=== PATIENT | male | born 1960 | race Caucasian/White ===

== ENCOUNTER 2019-01-13 09:06 | Outpatient (RCR) | payer OTHER, SELFPAY ==
[2019-01-13 09:27] VITALS: BP 166/102; PULSE 74; RESP 18; TEMP 36.6; BMI 36.8
--- NOTE | 2019-01-13 15:45 | PCM.WC.HP ---
(1) Perianal fistula Status: Chronic Current Visit: Yes Code(s): K60.3 - Anal fistula (2) Perianal abscess Status: Chronic Current Visit: Yes Code(s): K61.0 - Anal abscess (3) History of necrotizing fasciitis Status: Chronic Current Visit: Yes Code(s): Z87.39 - Personal history of other diseases of the musculoskeletal system and connective tissue (4) History of colon polyps Status: Chronic Current Visit: Yes Code(s): Z86.010 - Personal history of colonic polyps (5) Obesity (BMI 30-39.9) Status: Chronic Current Visit: Yes Code(s): E66.9 - Obesity, unspecified History of Present Illness Date of Service: 01/13/19 Chief Complaint: Perianal fistula secondary to necrotizing fasciitis of the rectum and perineum. History of Wound: This is a generally healthy 59-year-old male who presents with sequelae related to necrotizing fasciitis which was diagnosed in October 2016. The necrotizing fasciitis involved his rectal area and perineum, requiring life-saving surgery. Surgery was performed at [facility] in [place], [place]. The the surgery was a lifesaving measure, and the patient had a lengthy recovery, spanning 4 months of perineal and perirectal wound care and packing changes. As result, the patient has developed a chronic perianal fistula. Despite surgical intervention on September 25, 2018, at [facility], in which an attempt at perianal fistula repair was undertaken, the fistula persists until the current day. More recently, approximately 6 weeks ago, a perianal abscess developed, and drained spontaneously. The patient has remained under the care of a colon and rectal surgeon at [facility], Dr.Richard Weber. In August 2018, the patient underwent a colonoscopy, and was found to have an anorectal polyp measuring 30 mm in the descending colon, and a 10 mm polyp in the rectum. These were removed colonoscopically, and the patient is scheduled to undergo a repeat colonoscopy in the near future. A CT scan performed in mid November 2018 revealed inflammatory changes in the left perirectal area, suspicious for a fistula. He has been referred to our facility for evaluation and consideration of hyperbaric oxygen therapy for his persisting, nonhealing perianal fistula. While surgical management to toots another option of management, the procedure performed in August 2018 failed to identify the presence of an internal os. The patient claims to have satisfactory control of bowel movements. He denies hematochezia or melena. Past Medical History Past Medical History: Chronic Problems Perianal fistula (Chronic) Perianal abscess (Chronic) History of necrotizing fasciitis (Chronic) History of colon polyps (Chronic) Obesity (BMI 30-39.9) (Chronic) Past Medical History: Patient's history is negative for myocardial infarction, congestive heart failure, hypertension, diabetes mellitus, cancer, cerebrovascular accident, pulmonary disease, renal disease, thyroid disease, hyperlipidemia, etc. Surgical History: - - Patient has a history of bilateral carpal tunnel release. Left ulnar nerve release has been performed in the past. Patient has undergone a right total knee replacement as well. Allergies/Adverse Reactions: Allergies No Known Allergies Allergy (Verified 01/13/19 09:35) - Family History Paternal - - Patient's father is 80 years of age with a history of myocardial infarction. The patient's mother is 79 years of age, with a history of breast cancer. 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 He lives in the [facility], but spends his weeks in [place] as per the demands of his occupation. He denies the use of tobacco products. He consumes alcohol beverages occasionally. He is . Lives: Spouse/ Significant Other Smoking Status: Never smoker Tobacco Use: Non-smoker Alcohol: Occasional Drugs: None Review of Systems Constitutional: Denies: Chills, Fever, Weight Change Eyes: Denies: Pain, Vision Change HEENT: Denies: Difficulty Hearing, Difficulty Swallowing, Sinus Congestion Cardiovascular: Denies: Chest Pain, Palpitations Respiratory: Denies: Cough, Shortness of Breath Gastrointestinal: Denies: Diarrhea, Nausea, Vomiting Genitourinary: Denies: Dysuria, Hematuria Endocrine: Denies: Heat/ Cold Intolerance, Polydipsia, Polyuria Hematologic/ Lymphatic: Denies: Easy Bruising, Easy Bleeding - Physical Exam Vital Signs Temp Pulse Resp BP 97.8 F 74 18 166/102 H 01/13/19 09:27 01/13/19 09:27 01/13/19 09:27 01/13/19 09:27 General: Alert, Oriented x3, Cooperative, No apparent distress, Well developed, Well nourished HEENT: Atraumatic, PERRLA, EOMI, Normocephalic, TM's Clear - Otoscopic examination was normal Oral: Moist Mucosa, No Gingival or Mucosal Lesions/ Ulcerations Neck: Supple, No JVD, Negative Carotid Bruits, Negative Hepatojugular Reflux, No Nodes, No Nuchal Rigidity, Trachea Midline, Thyroid Normal Size and Texture Lungs: Clear to auscultation, Normal air movement, No rhonchi, No wheeze, No rales Cardiovascular: Regular rate, Regular Rhythm, Normal S1, Normal S2, No murmurs Abdomen: Bowel Sounds Present, Soft, Non Tender, Non-Distended, Obese Extremities: No clubbing, No cyanosis, No edema, No Calf Tenderness, - - Peripheral extremities are warm and well-perfused Skin: No rashes, No breakdown Wound Measurements and Assessment WC - Nurse 1 - General Ulcer Measurement Start: 01/13/19 09:27 Freq: Status: Active Protocol: Activity Type Activity Date Activity User E-Sign Co-Sign Detail Recorded Client Recorded Date Recorded By Document 01/13/19 09:27 [id number] 01/13/19 09:35 01/13/19 09:27 Wound Center Nurse 1 [Edema Assessment] -Lower Limb Edema Present NA WC - Nurse 2 - General Ulcer CM Notes Start: 01/13/19 09:27 Freq: Status: Active Protocol: Activity Type Activity Date Activity User E-Sign Co-Sign Detail Recorded Client Recorded Date Recorded By Document 01/13/19 09:55 MW [id number] 01/13/19 10:12 MW 01/13/19 09:55 Pain Scale: 0-10 Numeric [Pain] -Is Patient Pain Free? Yes Musculoskeletal: No Tenderness to Palpation of Joints or Extremities, No Muscle Wasting Lymphatic: No Cervical, Supraclavicular, or Inguinal Adenopathy Neurological: Cranial nerves II-XII grossly intact, Neuro grossly intact Psych/Mental Status: Normal Affect, Appropriate, Alert and oriented to time, place, person, mood and affect Debridement Note Post-Debridement Measurements/Treatment - Nurse 2 - General Ulcer CM Notes Start: 01/13/19 09:27 Freq: Status: Active Protocol: Activity Type Activity Date Activity User E-Sign Co-Sign Detail Recorded Client Recorded Date Recorded By Document 01/13/19 09:55 MW [id number] 01/13/19 10:12 MW 09/17/19 09:55 Pain Scale: 0-10 Numeric Is Patient Pain Free? Yes Assessment/Plan Active Problems Perianal fistula (Chronic) Perianal abscess (Chronic) History of necrotizing fasciitis (Chronic) History of colon polyps (Chronic) Obesity (BMI 30-39.9) (Chronic) Assessment: This is a generally healthy 59-year-old male who presents with a perianal fistula, the residual from prior necrotizing fasciitis of the perirectal region and perineum. Since his episode of necrotizing fasciitis in October 2016, the patient has had an abscess which drained spontaneously only just 6 weeks ago. Surgical intervention was performed in August 2018, at which time an attempt at perianal fistula repair was made. An internal os could not be identified, so tentative surgical repair of the perianal fistula was not feasible. Patient has been referred by his colon and rectal surgeon, Dr. Tao Weber, at [facility], for consideration of hyperbaric oxygen therapy. We have reviewed the patient's history and physical findings. There appeared to be no contraindications to initiating hyperbaric oxygen therapy. The patient is generally healthy, but for obesity. He has no other significant medical illnesses. A thorough assessment of body systems has been undertaken. No significant issues have been identified. Evaluation of the cardiovascular system, endocrinological system, pulmonary system, HEENT, genitourinary system, etc., revealed no significant contraindications to hyperbaric oxygen therapy. The patient has no history of pneumothorax, barotrauma of any type, seizures, and denies any history of claustrophobia. It appears as though hyperbaric oxygen therapy may well be a good primary modality with respect to the patient's perianal fistula. Alternatively, it may also serve as an adjunct to possible surgical re-intervention in the repair of the patient's perianal fistula. Since his initial treatment for necrotizing fasciitis, he has had recurring issues in the perirectal area, including abscess formation with spontaneous drainage. Plan: The nature of hyperbaric oxygen therapy has been discussed thoroughly with the patient. Our routine educational materials have been presented to the patient, enlightening him as to the indications, risks, and expectations related to hyperbaric oxygen therapy. Patient has expressed his desire to proceed. An attempt will be made to preauthorize hyperbaric oxygen, which will be initiated once approved. In the antrum, patient is to undergo routine laboratory studies, and a chest x-ray will be performed to assure that no abnormalities are found to contraindicate the initiation of HBO therapy. Influenza vaccine was not administered today. The patient is not a smoker. He stands 6 feet 0 inches tall. He weighs 272 pounds. BMI is 36.9, which places the patient in a class II obesity category. Weight loss has been recommended. Vibration with the patient's primary care physician has been advised.
== END 2019-01-26 23:59 ==
LOC: WC 09:06
PROVIDERS: Visit Provider Surgery
DX: K61.0 Anal abscess (principal); E66.9 Obesity, unspecified; Z68.36 Body mass index [BMI] 36.0-36.9, adult; Z71.3 Dietary counseling and surveillance; Z86.010 Personal history of colon polyps
CPT/HCPCS: 99203; G0463

== ENCOUNTER → 2019-01-15 13:17 | Outpatient (CLI) | payer OTHER, SELFPAY ==
[2019-01-13 09:27] VITALS: BMI 36.8
--- NOTE | 2019-01-15 13:21 | RAD_ITS ---
HISTORY:HBO TREATMENTS, NO CHEST COMPLAINTS HBO TREATMENTS, NO CHEST COMPLAINTS EXAM: XR Chest 2 Views: COMPARISON: None FINDINGS: # of images incl. paperwork: 2 LINES/DEVICES: None. LUNGS: Radiographically clear. No consolidation, edema or effusion. No pneumothorax. MEDIASTINUM AND CARDIOVASCULAR STRUCTURES: Cardiac silhouette not enlarged. BONES AND SOFT TISSUES: Unremarkable. RAD/Chest PA and Lateral IMPRESSION: No radiographic evidence of acute cardiopulmonary disease. at 2139 Reported and signed by: Destiny Ramirez DO Electronically Signed: Destiny Ramirez DO at 21:38 EDT Tel , Service support ,
[2019-01-15 14:17] LABS: Hematocrit 48.2 % (40-54); Hemoglobin 16.1 g/dL (13.0-16.5); Mean Corp Hgb Conc 33.4 g/dL (32-36); Mean Corpuscular Hgb 31.7 pg (27.0-32.0); Mean Corpuscular Volume 94.9 fL (80-94); Mean Platelet Vol. 10.7 fl (6.2-12.0); Platelet Count 146 K/mm3 (150-450); RBC Distribution Width CV 12.2 % (11.6-14.6); RBC Distribution Width SD 42.8 fl (35.1-43.9); Red Blood Count 5.08 M/mm3 (4.6-6.2); White Blood Count 8.4 K/mm3 (4.4-11.0)
[2019-01-15 15:05] LABS: ALB/GLOB Ratio 1.1 RATIO (0.9-2.4); AST(SGOT) 53 U/L (15-37); Alanine Aminotransfer ALT/SGPT 53 U/L (16-61); Albumin, Serum 3.7 g/dL (3.2-5.0); Alkaline Phosphatase 102 U/L (45-117); Anion Gap 9 (5-15); BUN 13 mg/dL (7-18); BUN/Creat Ratio 13.7 RATIO (10-20); Calcium,Total 8.4 mg/dL (8.5-10.1); Chloride 109 mmol/L (98-107); Creatinine, Serum 0.95 mg/dL (0.70-1.30); EST Glomerular Filtration Rate 86 mL/min (>60); Est Glom Filt Rate - Afr Amer 104 mL/min (>60); Globulin 3.5 g/dL (2.2-4.2); Glucose 122 mg/dL (74-106); Potassium 3.8 mmol/L (3.5-5.1); Prealbumin 26.8 mg/dL (20.0-40.0); Protein, Total 7.2 g/dL (6.4-8.2); Sodium Level 143 mmol/L (136-145)
== END ==
PROVIDERS: Referring Provider Surgery; Visit Provider Surgery
DX: K60.3 Anal fistula (principal)
CPT/HCPCS: 36415; 71046; 80053; 84134; 85027

== ENCOUNTER 2021-10-04 06:58 | Emergency (ER) | payer BC, SELFPAY ==
[2021-10-04 06:59] VITALS: BP 190/101; PULSE 92; RESP 28; TEMP 35.9; O2SAT 97; BMI 34.6
--- NOTE | 2021-10-04 07:14 | EKG12_ITS ---
Test Reason : DIZZY Blood Pressure : / mmHG Vent. Rate : 081 BPM Atrial Rate : 081 BPM P-R Int : 178 ms QRS Dur : 114 ms QT Int : 420 ms P-R-T Axes : 051 003 019 degrees QTc Int : 487 ms Normal sinus rhythm Prolonged QT Abnormal ECG Confirmed by JOHN HENRIQUEZ, YESENIA ([id number]), department editor MUNIRA BETANCOURT ([id number]) on 10/09/2021 7:33:29 AM Referred By: GEMA Confirmed By:YESENIA LOPEZ MD
--- NOTE | 2021-10-04 07:14 | EX.ED.DYSGE1 ---
HPI History of Present Illness Chief Complaint: Hypertension Informant: patient Narrative Narrative: Patient is a 61-year-old male presenting with hypertension and night sweats. Patient states that [place] here for work. [facility] on 08/25 with 1 refill. States he ran out. He does have an appointment to see a new primary care doctor in the area this coming Saturday, 5 days from now. He had been feeling great and had sweats all night long last night. He came in just to get checked out and to get a med refill until he can see his new primary care doctor. Denies any chest pain, shortness of breath or difficulty breathing. Patient does have a history of necrotizing fasciitis of the perineum with perianal abscess/fistula and a suture still in place. He notes that the area bleeds from time to time. He denies any pain in the area. He denies any difficulty with bowel movements or urination. Denies any fever or chills. Notes his initial surgery was in [place]. No other complaints at this time. [facility] Home Medications lisinopril 10 mg PO DAILY 10/04/21 [History Last Taken Unknown] lisinopril 10 mg PO DAILY #30 tab 10/04/21 [Rx Last Taken Unknown] Allergy/AdvReac Type Severity Reaction Status Date / Time No Known Allergies Allergy Verified 01/13/19 09:35 Social History Smoking Status: Never smoker [facility] ED Constitutional Constitutional ED: Reports sweats; Denies chills or fever(s) Eyes Eyes: Denies change in vision ENT ENT ED: Denies sore throat Cardiovascular Cardiovascular: Denies chest pain or palpitations Respiratory/Chest Respiratory/Chest: Denies cough, dyspnea or dyspnea on exertion Gastrointestinal Gastrointestinal: Denies abdominal pain, constipation, diarrhea or vomiting Genitourinary Genitourinary ED: Denies dysuria or hematuria Musculoskeletal Musculoskeletal: Denies myalgias Integumentary Reports other Details: Chronic perineal fistula, bleeds intermittently ; Denies rash Neurologic Neurologic: Denies headache(s), paresthesias or weakness Psychiatric Psychiatric: Denies depression EXAM Physical Exam Const Vital Signs: 10/04/21 06:59 10/04/21 07:03 10/04/21 07:56 Temperature 96.7 F L Temperature Source Oral Pulse Rate 92 81 Respiratory Rate 28 H 16 Respiratory Effort Normal Non-Labored Respiratory Pattern Normal Blood Pressure 190/101 H 160/120 H Blood Pressure Mean 130 133 Pulse Ox 97 96 Oxygen Delivery Method Room Air Room Air 10/04/21 08:19 Temperature Temperature Source Pulse Rate Respiratory Rate Respiratory Effort Respiratory Pattern Blood Pressure 161/100 H Blood Pressure Mean Pulse Ox Oxygen Delivery Method Positive well nourished, well developed and obese General Appearance ED: well developed and NAD Nutritional Appearance: obese HEENT Reports moist mucous membranes Negative for trauma Eyes PERRL and EOMs intact bilaterally Neck supple and no JVD Chest Wall inspection of chest normal Resp normal respiratory effort and clear to auscultation bilaterally Cardio regular rate, regular rhythm and no murmurs GI normal to inspection, nondistended, normoactive bowel sounds Narrative: External exam does show perineal fistula with what appears to be Vessel loops still in place. No active bleeding. No surrounding erythema or warmth. Extremity normal to inspection General Extremety ED: Negative for edema or tenderness General Extremity: Negative for edema Neuro oriented x3 Neuro Narrative: No focal deficits appreciated. Sensorium / Orientation: alert Motor Exam: Negative for general weakness Psych mental status grossly normal Skin no rashes or lesions noted MDM MDM MDM Narrative Medical decision making narrative: Patient is evaluated for elevated blood pressure and feeling off. He appears nontoxic and in no acute distress. He is hypertensive upon arrival. He does not have findings consistent with a hypertensive emergency. Lab work obtained looking for signs of endorgan damage including signs of heart strain or renal disease. Lab work largely unremarkable. He is mildly hypokalemic with a potassium of 3.3. He is given potassium supplementation in the emergency room. TSH is mildly elevated at 3.99 however I do not think he is in myxedema coma. This can be followed outpatient with his PCP this coming Saturday. EKG does not show any strain pattern or signs of ACS. Patient is given a dose of lisinopril in the ER and given a refill for lisinopril. He is given referral for surgery given his chronic fistula. Patient is counseled return precautions. He verbalizes agreement understanding this plan. Discharged home in stable condition. Lab Data Attestation: I reviewed the patient's lab results. Labs: Laboratory Results - last 24 hr 10/04/21 10/04/21 07:06 07:06 WBC 4.3 L RBC 5.06 Hgb 16.3 Hct 47.3 MCV 93.5 MCH 32.2 H MCHC 34.5 RDW Std Deviation 42.2 RDW Coeff of Echo 12.2 Plt Count 77 L MPV 11.1 Immature Gran % (Auto) 0.200 Neut % (Auto) 53.4 Lymph % (Auto) 33.2 [place] % (Auto) 10.4 H Eos % (Auto) 1.9 Baso % (Auto) 0.9 Absolute Neuts (auto) 2.3 Absolute Lymphs (auto) 1.41 Nucleated RBC % 0 Platelet Estimate SLT DEC RBC Morphology NORM C+C Sodium 140 Potassium 3.3 L Chloride 104 Carbon Dioxide 26.0 Anion Gap 10 BUN 8 Creatinine 0.72 Estim Creat Clear Calc 116.76 Est GFR (MDRD) Af Amer 143 Est GFR (MDRD) Non-Af 118 BUN/Creatinine Ratio 11.2 Glucose 120 H Calcium 8.9 TSH 3.99 H Radiography Chest X-Ray - ED: 2 View, Read by ED Physician, Read by Radiologist and No Acute Disease Diagnostic Testing: Clinical Impression(s) from Imaging Studies Chest X-Ray 10/04/21 07:35 IMPRESSION: No acute abnormality is seen. Stable examination. Electronically Signed: Mauro Selby MD at 7:57 EDT , Rhythm Strip Rhythm Strip: Sinus Rhythm Rate: 81 Ectopy: None EKG Initial EKG: Attestation: I personally reviewed and interpreted this EKG as follows: Interpretation: Sinus Rhythm Comments: Normal sinus rhythm at a rate of 81 Normal axis Normal [place] and QRS Normal ST segments QTC 487 Prior: No Prior Discharge Plan Triage Chief Complaint: Hypertension ED Provider: Emily Cullen Dx/Rx/DC Orders Clinical Impression: Hypertension, Acute hypokalemia, Perianal fistula Instructions: ED Hypertension, Established, ED Hypokalemia Prescriptions: New lisinopril 10 mg tablet 10 mg PO DAILY Qty: 30 RF: 0 No Action lisinopril 10 mg tablet 10 mg PO DAILY RF: 0 Primary Care Provider: Care Physician,No Primary Referrals: Neli Ogden MD [STAFF PHYSICIAN] - [facility],Out of [NON-STAFF] - Activity Restrictions/Additional Instructions: Your potassium was mildly low today. Please take foods that are rich in potassium. Your TSH was 3.99. Your other lab work was normal. Follow-up with your new primary care doctor on Saturday as scheduled. Disposition Disposition: Home, Self Care Discharge Date/Time: 10/04/21 08:21
[2021-10-04 07:23] LABS: Absolute Lymphocyte Count 1.41 X10^3/uL (0.83-4.51); Absolute Neutrophil Count 2.3 X10^3/uL (2.0-7.7); Basophil# 0.04 X10^3/uL; Basophil% 0.9 % (0-1); Eosinophil# 0.08 X10^3/uL; Eosinophils% 1.9 % (0-5); Hematocrit 47.3 % (40-54); Hemoglobin 16.3 g/dL (13.0-16.5); Lymphocyte # 1.41 X10^3/ul (0.83-4.51); Lymphocyte % 33.2 % (19-41); Mean Corp Hgb Conc 34.5 g/dL (32-36); Mean Corpuscular Hgb 32.2 pg (27.0-32.0); Mean Corpuscular Volume 93.5 fL (80-94); Mean Platelet Vol. 11.1 fl (6.2-12.0); Monocyte# 0.44 X10^3/uL; Monocyte% 10.4 % (0-10); NRBC Flagged by Analyzer 0 % (0-5); Neutrophil # 2.27 X10^3/uL (2.7-7.7); Neutrophil % 53.4 % (47-70); POSITIVE COUNT YES; RBC Distribution Width CV 12.2 % (11.6-14.6); RBC Distribution Width SD 42.2 fl (35.1-43.9); Red Blood Count 5.06 M/mm3 (4.6-6.2); White Blood Count 4.3 K/mm3 (4.4-11.0)
[2021-10-04 07:30] LABS: Differential Indicated SCAN CRITERIA MET
--- NOTE | 2021-10-04 07:35 | RAD_ITS ---
STUDY: X-RAY CHEST REASON FOR EXAM: Male, 61 years old. Night sweats TECHNIQUE: PA and lateral views of the chest. COMPARISON: Comparison is made with prior studies of 03/17/2019. FINDINGS: EKG electrodes are seen. Stable elevation of the right hemidiaphragm. There is no demonstrated pleural abnormality. Normal size heart. Normal mediastinum and jaelyn. Normal visualized pulmonary arteries. There is atherosclerotic calcification of the aortic arch with tortuosity. There are diffuse degenerative changes of the visualized thoracic spine. Normal visualized ribs, clavicles, and shoulders. There is no demonstrated abnormality of the visualized soft tissue structures of the upper abdomen. RAD/Chest PA and Lateral IMPRESSION: No acute abnormality is seen. Stable examination. Electronically Signed: Mauro Selby MD at 7:57 EDT ,
[2021-10-04 07:44] LABS: Anion Gap 10 (5-15); BUN 8 mg/dL (7-18); BUN/Creat Ratio 11.2 RATIO (10-20); Calcium,Total 8.9 mg/dL (8.5-10.1); Chloride 104 mmol/L (98-107); Creatinine, Serum 0.72 mg/dL (0.70-1.30); EST Glomerular Filtration Rate 118 mL/min (>60); Est Glom Filt Rate - Afr Amer 143 mL/min (>60); Estimated Creatinine Clearance 116.76 ml/min; Glucose 120 mg/dL (74-106); Potassium 3.3 mmol/L (3.5-5.1); Sodium Level 140 mmol/L (136-145); Thyroid Stim Hormone (TSH) 3.99 uIU/mL (0.358-3.74)
[2021-10-04 07:56] VITALS: BP 160/120; PULSE 81; RESP 16; O2SAT 96
[2021-10-04 08:01] LABS: Platelet Count 77 K/mm3 (150-450)
[2021-10-04 08:02] LABS: Platelet Estimate SLT DEC (ADEQ); Red Cell Morphology NORM C+C NORMAL (NORM C&C)
[2021-10-04] MEDS: Lisinopril 10 MG Tablet PO (08:15)
[2021-10-04] MEDS: Potassium Chloride Oral Tablet 20 MEQ PO (08:16)
[2021-10-04 08:19] VITALS: BP 161/100
== END 2021-10-04 08:21 | disposition home or self-care (01) ==
PROVIDERS: Emergency Provider Emergency Medicine; Visit Provider Emergency Medicine
DX: I10 Essential (primary) hypertension (principal); K61.0 Anal abscess; E87.6 Hypokalemia
CPT/HCPCS: 71046; 80048; 84443; 85025; 93005; 99284; A4216

== ENCOUNTER → 2021-12-21 | Outpatient (CLI) | payer BC, SELFPAY ==
[2021-12-21 15:03] LABS: Absolute Lymphocyte Count 1.03 X10^3/uL (0.83-4.51); Basophil# 0.05 X10^3/uL; Basophil% 0.9 % (0-1); Eosinophil# 0.03 X10^3/uL; Eosinophils% 0.5 % (0-5); Hematocrit 45.5 % (40-54); Hemoglobin 15.5 g/dL (13.0-16.5); Lymphocyte # 1.03 X10^3/ul (0.83-4.51); Lymphocyte % 18.2 % (19-41); Mean Corp Hgb Conc 34.1 g/dL (32-36); Mean Corpuscular Hgb 32.8 pg (27.0-32.0); Mean Corpuscular Volume 96.2 fL (80-94); Mean Platelet Vol. 11.5 fl (6.2-12.0); Monocyte# 0.51 X10^3/uL; NRBC Flagged by Analyzer 0 % (0-5); Neutrophil % 70.9 % (47-70); POSITIVE COUNT YES; Platelet Count 94 K/mm3 (150-450); RBC Distribution Width CV 12.2 % (11.6-14.6); RBC Distribution Width SD 43.8 fl (35.1-43.9); Red Blood Count 4.73 M/mm3 (4.6-6.2); White Blood Count 5.7 K/mm3 (4.4-11.0)
[2021-12-21 15:21] LABS: AST(SGOT) 55 U/L (15-37); Alanine Aminotransfer ALT/SGPT 40 U/L (16-61); Albumin, Serum 3.7 g/dL (3.2-5.0); Alkaline Phosphatase 118 U/L (45-117); Anion Gap 7 (5-15); BUN 10 mg/dL (7-18); BUN/Creat Ratio 12.4 RATIO (10-20); Calcium,Total 8.8 mg/dL (8.5-10.1); Chloride 106 mmol/L (98-107); Cholesterol 223 mg/dL (200); EST Glomerular Filtration Rate 103 mL/min (>60); Est Glom Filt Rate - Afr Amer 125 mL/min (>60); Globulin 3.8 g/dL (2.2-4.2); Glucose 100 mg/dL (74-106); High Density Lipoprotein 83 mg/dL; PSA,Total - Annual Screen 3.18 ng/mL (0.00-4.00); Potassium 3.8 mmol/L (3.5-5.1); Protein, Total 7.5 g/dL (6.4-8.2); Sodium Level 140 mmol/L (136-145); Triglycerides 63 mg/dL; Very Low Density Lipoprotein 13 mg/dL (5-40)
== END | disposition home or self-care (01) ==
LOC: MFPLAB 11:52
PROVIDERS: PCP Family Medicine; Referring Provider Family Medicine; Visit Provider Family Medicine
DX: K60.3 Anal fistula (principal); I10 Essential (primary) hypertension; Z12.5 Encounter for screening for malignant neoplasm of prostate
CPT/HCPCS: 36415; 80053; 80061; 84153; 85025; G0103

== ENCOUNTER → 2022-08-06 | Outpatient (CLI) | payer BC, SELFPAY ==
[2022-08-06 18:03] LABS: ALB/GLOB Ratio 0.9 RATIO (0.9-2.4); AST(SGOT) 44 U/L (15-37); Alanine Aminotransfer ALT/SGPT 34 U/L (16-61); Albumin, Serum 3.4 g/dL (3.2-5.0); Alkaline Phosphatase 112 U/L (45-117); Anion Gap 8 (5-15); BUN 12 mg/dL (7-18); BUN/Creat Ratio 14.9 RATIO (10-20); Calcium,Total 8.4 mg/dL (8.5-10.1); Chloride 105 mmol/L (98-107); EST Glomerular Filtration Rate 103 mL/min (>60); Est Glom Filt Rate - Afr Amer 125 mL/min (>60); Globulin 3.7 g/dL (2.2-4.2); Glucose 95 mg/dL (74-106); Potassium 3.6 mmol/L (3.5-5.1); Protein, Total 7.1 g/dL (6.4-8.2); Sodium Level 136 mmol/L (136-145)
== END | disposition home or self-care (01) ==
LOC: MFPLAB 15:34
PROVIDERS: PCP Family Medicine; Visit Provider Family Medicine
DX: R79.89 Other specified abnormal findings of blood chemistry (principal)
CPT/HCPCS: 36415; 80053